=== PATIENT | male | born 1995 | race Caucasian/White ===

== ENCOUNTER 2023-03-18 11:33 | Emergency (ER) | payer OTHER, SELFPAY ==
[2023-03-18 11:56] VITALS: BP 118/75; PULSE 60; RESP 18; TEMP 36.4; O2SAT 100
--- NOTE | 2023-03-18 12:38 | ED.WOUNDLAC ---
HPI - Wound/Laceration General Chief Complaint: Wound/Laceration Stated Complaint: laceration lt ankle Time Seen by Provider: 03/18/23 12:39 Source: patient, RN notes reviewed and old records reviewed Mode of arrival: ambulatory Limitations: no limitations History of Present Illness HPI narrative: 28-year-old male presents to the [facility] with a laceration to the posterior left ankle. States that he got it caught on his grill 26 hours prior to arrival. Cleaned it, applied skin glue. No bleeding noted currently. Patient states there was bleeding when he woke up on the sheets this morning. Has full range of motion. No Achilles tenderness, swelling or signs of infection. Able to flex and dorsiflex foot Unknown last Tdap Onset (ago): hour(s) (26) Related Data Home Medications Medication Instructions Recorded Confirmed No Home Medications 03/18/23 03/18/23 Allergies Allergy/AdvReac Type Severity Reaction Status Date / Time Penicillins Allergy Mild Hives Verified 03/18/23 12:54 Review of Systems Review of Systems: All systems reviewed & are unremarkable except as noted in HPI and below Constitutional: Constitutional: Reports no additional constitutional complaints Eyes: Eyes: Reports no additional eye complaints ENT: Reports system reviewed and no additional complaints, except as documented Cardiovascular: Cardiovascular: Reports no additional cardiovascular complaints, Denies chest pain and Denies dyspnea Respiratory: Respiratory: Reports no additional respiratory complaints, Denies chest congestion, Denies cough and Denies dyspnea Gastrointestinal: Gastrointestinal: Reports no additional gastrointestinal complaints, Denies abdominal pain, Denies nausea and Denies vomiting Musculoskeletal: Musculoskeletal: Reports no additional musculoskeletal complaints Integumentary/Breasts: Skin/Breast: Reports as per HPI Neurologic: Reports system reviewed and no additional complaints, except as documented Psychiatric: Psychiatric: Reports no additional psychiatric complaints Allergic/Immunologic: Allergic/Immunologic: Reports no additional allergic/immunologic complaints PMFSH Comments At the time of my signature, I reviewed and agree with the nursing past medical, surgical, social, and family history. There is no relevant family history pertinent to the patient complaint. Exam Const: General: cooperative, healthy appearing, comfortable, no acute distress, well developed, alert and well nourished Nutritional Appearance: well nourished Orientation/consciousness: patient oriented x3 Limitations: no limitations HENMT: Head: normal to inspection Ears: hearing grossly normal bilaterally and external ears normal Face/Nose/Sinus: Normal external nose present, Normal nares present, Normal nasal mucous membranes and turbinates present and normal facial exam Face and sinus: normal facial exam Mouth: Yes lip normal Eyes: General: appearance normal, both eyes and all related structures Alignment and Position: alignment normal Periorbital: periorbital findings normal Pupils: Equal, round and reactive pupils present EOM: EOMs intact bilaterally Neck: Neck: normal visual inspection, full ROM, no lymphadenopathy and no meningeal signs Chest: Chest palpation & inspection: normal inspection of the chest Resp: Effort & Inspection: normal respiratory effort and able to speak in complete sentences Cardio: Rate: regular rate Rhythm: regular rhythm Back/Spine/Pelvis: Cervical Spine: cervical ROM normal Thoracic/Lumbar Spine: No thoracic spinal tenderness Skin: General skin exam: normal color and no rashes or lesions noted Lesions: no lesions Rashes: no rashes Other: 1.5 cm laceration of skin, open over 24 hours. Bleeding is controlled. Area cleaned with Betadine and saline. Steri-Strips applied Neuro: General: patient oriented x3, gait normal, tone normal, moves all extremities and no meningeal signs Cranial nerve
[2023-03-18] MEDS: TETANUS,DIPHTHERIA,AC PERTUSSIS ADULT (0.5 ML) BOOSTRIX IM (12:58)
== END 2023-03-18 13:08 | disposition home or self-care (01) ==
PROVIDERS: Emergency Provider Nurse Practitioner
DX: S91.012A Laceration without foreign body, left ankle, initial encounter (principal); W22.8XXA Striking against or struck by other objects, initial encounter; Z23 Encounter for immunization
CPT/HCPCS: 90471; 90715; 99212; G0463

== ENCOUNTER 2024-07-19 06:55 | Day surgery (SDC) | payer OTHER, SELFPAY ==
[2024-07-06 13:26] VITALS: BMI 21.4
[2024-07-19] VITALS (7 sets, daily range): BP systolic 93–121; BP diastolic 56–84; PULSE 54–66; RESP 14–17; TEMP 36.1–36.7; O2SAT 100
--- NOTE | 2024-07-19 08:37 | WPDHPUPDATE1 ---
History and Physical Update Update Date/Time: 07/19/24 08:37 History and Physical has been reviewed, including an updated exam of the patient. There are NO changes in the patient's condition. Risks, benefits, and alternatives have been discussed and questions answered. Patient agrees to proceed with procedure.
--- NOTE | 2024-07-19 08:45 | P.PNAN_ITS ---
Anes - Initial Pre Proc Eval Procedure: Operation Date: 07/19/24 08:45 Proposed Procedures p Bilateral Excision Gynecomastia with Liposuction - Kasi Perez MD Date/Time: 07/19/24 08:45 Surgeon: Kasi Perez MD Pre Op Diagnosis: Gynecomastia Patient Data Age: 29 Gender: M Height: 1.93 m Weight: 86.15 kg Last Vital Signs Temp 36.7 C 07/19/24 07:53 Pulse 58 L 07/19/24 07:53 Resp 16 07/19/24 07:53 BP 112/74 07/19/24 07:53 Pulse Ox 100 07/19/24 07:53 O2 Del Method Room Air 07/19/24 07:53 Allergies Allergy/AdvReac Type Severity Reaction Status Date / Time Penicillins Allergy Mild Hives Verified 07/19/24 07:19 Home Medications Medication Instructions Recorded Confirmed Type B Complex-Vitamin B12 1 tab-cap PO DAILY 07/06/24 07/19/24 History finasteride 1 mg tablet 1 mg PO DAILY 07/06/24 07/19/24 History Patient hx anesthesia problems: none Family hx anesthesia problems: none Results Review: All pre-operative results and documents have been reviewed as part of the pre- operative evaluation. [facility] Past Medical History Medical History (Updated 07/19/24 @ 08:45 by Shayne Giordano DO) BPH (benign prostatic hyperplasia) Social History Social History Smoking packs per day: 1 Smoking cigarettes per day: 20.0 Years smoked: 10 Smoking pack-years: 10.00 Smoking status: Former smoker Tobacco type: cigarettes Alcohol intake: never Substance use: former Substance use type: marijuana Last use: 12-17-23 Living arrangements: alone Spiritual care concerns: No Anes - Eval Final PreProcedure Day of Procedure 07/19/24 08:45 Patient weight: normal Heart: regular rate and rhythm Lungs: clear to auscultation and normal air movement Airway: Mallampati scale class II Neurological: alert and oriented Last oral intake: >/= 8 hours ASA classification: II Emergent: no Anesthetic plan: proceed Anesthesia type and monitoring: general LMA and standard monitoring Results Review: All pre-operative results and documents have been reviewed as part of the pre- operative evaluation. Informed Consent: The patient's anesthetic plan and its attendant risks and benefits were discussed with the patient/family/POA. Questions were solicited and answers provided to the satisfaction of the patient/family/POA.
--- NOTE | 2024-07-19 08:45 | W.PM.PROC2 ---
Procedure Note - Detailed Date of Procedure 07/19/24 Pre-op Diagnosis Gynecomastia Post-op Diagnosis Same Procedure Performed Excision with suction lipectomy bilateral gynecomastia Surgeon Kasi Perez MD Anesthesia General Findings Lipoaspirate 650 cc Description of Procedure He is here today for the above procedure. Previously and again today the risks, benefits, alternatives were discussed in extensive detail. I wanted him to be very realistic about the risks involved as well as expectations. We discussed aftercare and what to monitor for. Discussed realistic expectations of outcome. He understands this could lead to loose skin which would require a second stage skin excision (with scars). Made sure I answered all of questions to satisfaction today and consent was obtained. He was marked in the preoperative holding area with his verification. The patient was taken to the operating room placed supine on the operating table. Anesthesia was provided by anesthesiology. Prepped and draped in a standard sterile fashion. A surgical time-out was taken. Stab incisions were made and I tumesced with a tumescent solution. I then proceeded with suction lipectomy using a 4mm marialuisa cannula. This was in multiple planes and passes and based on pre-operative planning, intraoperative observation, and rolling pinch test which was in full agreement. He was placed in a sitting position to verify final contour. A 15 blade was used to make a transverse areolar (inferior to nipple) incision and dissection continued until the gland was identified. This was excised. Irrigated copiously with saline solution and verified a strict hemostasis. Verified contour. Incision was closed with 3-0 Monocryl, and 5-0 plain gut suture. Port sites closed with 5-0 plain gut suture. Dressing was placed. Patient was awoke and taken to PACU without difficulty. All instrument and sponge counts were correct at the end of the case. Estimated Blood Loss 20 Drains No Packing No Pathology Yes (Bilateral gynecomastia) Complications No immediate complications Condition Stable Disposition PACU
[2024-07-19] MEDS: ceFAZolin 2 GM/D5W 50 ML 2 GM/50 ML BAG IVPB (09:02)
[2024-07-19] MEDS: LACTATED RINGERS 1,000 ML 30 ML IV CONT (10:41)
--- NOTE | 2024-07-19 11:14 | SUR.PHASEI ---
PT AWAKE AND ALERT. TALKATIVE.
--- NOTE | 2024-07-19 11:58 | SUR.PHASEII ---
CALLED PT'S FRIEND FOR [employer]. NO INFO GIVEN PER PT REQUEST.
--- NOTE | 2024-07-19 12:33 | SUR.PHASEII ---
1200; PT DRESSED AND READY FOR DISCHARGE. AWAKE AND ALERT. DENIES PAIN OR NAUSEA. WAITING FOR RIDE TO ARRIVE.
--- NOTE | 2024-07-19 14:00 | WPDANESPN ---
Anes - Prog Note Post-Op Date/Time: 07/19/24 14:00 Cardiovascular status: normal Respiratory status: normal Airway patency: baseline Mental status: baseline Post-Op hydration status: normal Vital Signs: Last Vital Signs Temp 36.1 C L 07/19/24 10:41 Pulse 56 L 07/19/24 11:50 Resp 16 07/19/24 11:50 BP 115/84 07/19/24 11:50 Pulse Ox 100 07/19/24 11:50 O2 Del Method Room Air 07/19/24 11:50 O2 Flow Rate 6 07/19/24 10:55 Pain Score (VAS): 0 I/O: Intake & Output 07/18/24 07/19/24 07/19/24 23:59 07:59 15:59 Intake Total 350 Balance 350 Post-procedural complaints: none Patient Feedback: Patient satisfied with anesthetic care. Other Findings: Patient vital signs back to baseline. Patient denies nausea and vomiting. Patient's pain under control. Patient OK for discharge.
== END 2024-07-19 12:25 | disposition home or self-care (01) ==
PROVIDERS: Visit Provider Surgery Plastic and Reconstructive Surgery
PROC: (CPT 19300; principal; 2024-07-19 08:45)
DX: N62 Hypertrophy of breast (principal)
CPT/HCPCS: 15877

== ENCOUNTER 2024-07-19 09:06 | Outpatient (NON) | payer OTHER, SELFPAY | END 2024-07-19 09:07 | disposition home or self-care (01) | LOC: ANHLAB 07-20 09:07 | PROVIDERS: Visit Provider Surgery Plastic and Reconstructive Surgery | DX: N62 Hypertrophy of breast (principal) | CPT/HCPCS: 88305 ==

== ENCOUNTER 2024-10-06 10:13 | Outpatient (CLI) | payer OTHER, SELFPAY ==
--- NOTE | ~2024-10-06 | XR_ITS ---
Left Knee Technique: AP and lateral views were obtained. Clinical History: Pain Findings: No fracture or dislocation is seen. Osseous alignment is anatomic. Joint spaces are preserv ed without degenerative or erosive change. Soft tissues are unremarkable. No joint effusion is seen. Impression: Unremarkable left knee radiographs. Reviewed, dictated and finalized at location . A LOGIST Impression: Unremarkable left knee radiographs.
[2024-10-06 10:46] LABS: Hemoglobin 13.4 g/dL (14.0-18.0); Mean Corpuscular HGB Conc 32.7 g/dl (32-36); Mean Corpuscular Volume 91.7 fl (80-100); Mean Platelet Volume 10.3 fl (7.4-10.4); Platelet Count Result 269 k/mm3 (150-375); Red Blood Count 4.47 M/mm3 (4.6-6.20); Red Cell Distribution Width 14.1 % (11.5-14.5); White Blood Count 5.2 K/mm3 (4.5-10.0)
[2024-10-06 11:01] LABS: Alanine Aminotransferase 19 U/L (6-50); Albumin Level 4.5 g/dL (3.5-5.1); Alkaline Phosphatase 79 U/L (38-126); Anion Gap 2 mmol/L (4-12); Aspartate Amino Transferase 27 U/L (17-59); Bilirubin,Total 0.5 mg/dL (0.2-1.3); Blood Urea Nitrogen 7 mg/dL (9-20); Calcium 9.6 mg/dL (8.4-10.2); Carbon Dioxide 32 mmol/L (22-30); Chloride 105 mmol/L (98-107); Cholesterol 157 mg/dL (0-200); Estimated Glomerular Filt Rate > 60; Glucose 84 mg/dL (65-110); HDL Direct 65 mg/dL; Potassium 4.2 mmol/L (3.4-5.0); Sodium 139 mmol/L (137-145); Triglycerides 61 mg/dL (<150)
[2024-10-06 11:12] LABS: LDL Cholesterol Direct 67 mg/dL
== END 2024-10-06 10:14 | disposition home or self-care (01) ==
PROVIDERS: PCP Nurse Practitioner Family; Visit Provider Nurse Practitioner Family
DX: Z00.00 Encounter for general adult medical examination without abnormal findings (principal); M25.562 Pain in left knee; Z76.89 Persons encountering health services in other specified circumstances; Z13.0 Encounter for screening for diseases of the blood and blood-forming organs and certain disorders involving the immune mechanism; Z13.220 Encounter for screening for lipoid disorders; Z13.228 Encounter for screening for other metabolic disorders
CPT/HCPCS: 36415; 73560; 80053; 80061; 85027